=== PATIENT | female | born 1965 | race Caucasian/White ===

== ENCOUNTER → 2017-02-16 | Outpatient (CLI) | payer BC | END | disposition home or self-care (01) | LOC: CFH 15:43 | PROVIDERS: ATTEND Family Medicine | DX: Z12.31 Encounter for screening mammogram for malignant neoplasm of breast (principal) | CPT/HCPCS: G0202 ==

== ENCOUNTER → 2018-05-30 | Outpatient (CLI) | payer BC | END | disposition home or self-care (01) | LOC: CFH 16:05 | PROVIDERS: ATTEND Family Medicine | DX: Z12.31 Encounter for screening mammogram for malignant neoplasm of breast (principal) | CPT/HCPCS: 77067 ==

== ENCOUNTER 2019-04-09 12:32 | Emergency (ER) | payer BC ==
[~2019-04-09] VITALS: Ht 172.7 cm; Wt 75.3 kg
[2019-04-09 12:40] VITALS: BP 134/65
[2019-04-09] MEDS ORDERED: METHOCARBAMOL 750 MG TABLET PO ONE (13:00)
[2019-04-09] MEDS ORDERED: KETOROLAC 30 MG/1 ML IM ONE (13:00)
[2019-04-09] MEDS ORDERED: KETOROLAC 30 MG/1 ML ONE (13:15)
[2019-04-09] MEDS ORDERED: METHOCARBAMOL 750 MG TABLET ONE (13:15)
== END 2019-04-09 14:14 | disposition home or self-care (01) ==
LOC: ED 14:00
DX: M54.5 Low back pain (principal); F17.210 Nicotine dependence, cigarettes, uncomplicated
CPT/HCPCS: 72110; 96372; 99283; J1885

== ENCOUNTER → 2019-06-05 | Outpatient (CLI) | payer BC | END | disposition home or self-care (01) | LOC: CFH 14:12 | PROVIDERS: ATTEND Family Medicine | DX: Z12.31 Encounter for screening mammogram for malignant neoplasm of breast (principal); N64.89 Other specified disorders of breast | CPT/HCPCS: 77067 ==